=== PATIENT | female | born 1945 | race Two or more races ===

== ENCOUNTER 2019-04-14 10:56 | Outpatient (CLI) | payer OTHER ==
[~2019-04-14 10:56] MED LIST: ORPH100T PO
== END 2019-04-14 10:58 | disposition home or self-care (01) ==
LOC: NUCLEAR 10:56
DX: I11.9 Hypertensive heart disease without heart failure (principal); I63.412 Cerebral infarction due to embolism of left middle cerebral artery

== ENCOUNTER 2019-04-21 11:03 | Outpatient (CLI) | payer OTHER | END 2019-04-21 11:05 | disposition home or self-care (01) | LOC: NUCLEAR 11:03 | DX: I63.412 Cerebral infarction due to embolism of left middle cerebral artery (principal); G40.309 Generalized idiopathic epilepsy and epileptic syndromes, not intractable, without status epilepticus; G40.909 Epilepsy, unspecified, not intractable, without status epilepticus; I11.9 Hypertensive heart disease without heart failure; M54.5 Low back pain ==

== ENCOUNTER 2019-04-21 12:42 | Outpatient (CLI) | payer OTHER | END 2019-04-21 12:43 | disposition home or self-care (01) | LOC: MAMO-SONO 12:42 | DX: Z12.31 Encounter for screening mammogram for malignant neoplasm of breast (principal); Z87.898 Personal history of other specified conditions; E11.9 Type 2 diabetes mellitus without complications; I63.412 Cerebral infarction due to embolism of left middle cerebral artery; G40.309 Generalized idiopathic epilepsy and epileptic syndromes, not intractable, without status epilepticus; G40.909 Epilepsy, unspecified, not intractable, without status epilepticus; I11.9 Hypertensive heart disease without heart failure; I73.89 Other specified peripheral vascular diseases; F41.8 Other specified anxiety disorders; Z01.810 Encounter for preprocedural cardiovascular examination; I50.89 Other heart failure; M54.5 Low back pain ==

== ENCOUNTER 2019-04-28 11:12 | Outpatient (CLI) | payer OTHER | END 2019-04-28 11:18 | disposition home or self-care (01) | LOC: NUCLEAR 11:12 | DX: M54.5 Low back pain (principal); M81.0 Age-related osteoporosis without current pathological fracture; Z01.810 Encounter for preprocedural cardiovascular examination ==

== ENCOUNTER 2021-09-11 13:22 | Outpatient (CLI) | payer OTHER | END 2021-09-11 13:31 | disposition home or self-care (01) | LOC: RAD 13:22 | PROVIDERS: ATTEND Internal Medicine | DX: M25.551 Pain in right hip (principal); M25.552 Pain in left hip; G40.909 Epilepsy, unspecified, not intractable, without status epilepticus ==

== ENCOUNTER 2022-03-12 13:55 | Outpatient (CLI) | payer OTHER | END 2022-03-12 13:59 | disposition home or self-care (01) | LOC: NUCLEAR 13:55 | PROVIDERS: ATTEND Internal Medicine | DX: M25.552 Pain in left hip (principal); M25.551 Pain in right hip; E11.9 Type 2 diabetes mellitus without complications; G40.909 Epilepsy, unspecified, not intractable, without status epilepticus; I11.9 Hypertensive heart disease without heart failure; I73.9 Peripheral vascular disease, unspecified; F41.9 Anxiety disorder, unspecified; I50.9 Heart failure, unspecified; M54.59 Other low back pain; E55.9 Vitamin D deficiency, unspecified ==

== ENCOUNTER 2022-06-11 07:43 | Outpatient (CLI) | payer OTHER | END 2022-06-11 08:01 | disposition home or self-care (01) | LOC: SONOGRAMA 07:43 | PROVIDERS: ATTEND Internal Medicine | DX: K86.1 Other chronic pancreatitis (principal); K56.2 Volvulus; E11.9 Type 2 diabetes mellitus without complications; E55.9 Vitamin D deficiency, unspecified ==